=== PATIENT | female | born 1960 | race Caucasian/White ===

== ENCOUNTER 2021-07-21 18:03 | Inpatient (IN) | payer OTHER ==
[~2021-07-21] VITALS: Ht 160 cm; Wt 73.5 kg
[2021-07-22 02:38] LABS: HEMOGLOBIN 12.1 gm/dl (12.3-15.3); RED BLOOD COUNT 3.68 M/UL (4.00-5.10); WHITE BLOOD COUNT 8.8 K/UL (4.5-11.0)
[2021-07-22 03:00] LABS: BUN/CREATININE RATIO 24 (0-10)
[2021-07-22] MEDS ORDERED: AMLODIPINE BESY10 MG PO (09:51)
[2021-07-22] MEDS ORDERED: ATORVASTATIN CA10 MG PO (09:52)
[2021-07-22] MEDS ORDERED: ZESTRIL 40 MG T40 MG PO (09:53)
[2021-07-22] MEDS ORDERED: MONTELUKAST SOD10 MG PO (09:53)
[2021-07-22] MEDS ORDERED: LEVOCETIRIZINE D5 MG PO (09:53)
[2021-07-22] MEDS ORDERED: ASPIRIN EC81 MG PO (09:54)
[2021-07-22] MEDS ORDERED: LANTUS SOL100 UNIT/1 SQ (09:57)
[2021-07-22] MEDS ORDERED: AUGMENTIN 875-1 EACH PO (10:10)
[2021-07-23 02:21] LABS: HEMOGLOBIN 11.3 gm/dl (12.3-15.3); RED BLOOD COUNT 3.51 M/UL (4.00-5.10); WHITE BLOOD COUNT 10.8 K/UL (4.5-11.0)
[2021-07-23 03:27] LABS: BUN/CREATININE RATIO 31 (0-10)
[2021-07-24 04:00] LABS: BUN/CREATININE RATIO 44 (0-10)
[2021-07-25 03:45] LABS: HEMOGLOBIN 11.9 gm/dl (12.3-15.3); RED BLOOD COUNT 3.64 M/UL (4.00-5.10); WHITE BLOOD COUNT 9.2 K/UL (4.5-11.0)
[2021-07-25 05:29] LABS: BUN/CREATININE RATIO 36 (0-10)
[2021-07-26 02:42] LABS: BUN/CREATININE RATIO 32 (0-10)
[2021-07-27 02:23] LABS: HEMOGLOBIN 13.1 gm/dl (12.3-15.3)
[2021-07-27 02:27] LABS: RED BLOOD COUNT 4.03 M/UL (4.00-5.10); WHITE BLOOD COUNT 13.1 K/UL (4.5-11.0)
[2021-07-27 02:39] LABS: BUN/CREATININE RATIO 39 (0-10)
[2021-07-28 05:25] LABS: HEMOGLOBIN 13.3 gm/dl (12.3-15.3); RED BLOOD COUNT 4.2 M/UL (4.00-5.10)
[2021-07-28 05:32] LABS: WHITE BLOOD COUNT 18.3 K/UL (4.5-11.0)
[2021-07-28 05:57] LABS: BUN/CREATININE RATIO 36 (0-10)
--- NOTE | 2021-07-28 11:47 | NUR ---
MD FAIR AWARE OF RECENT XRAY. CALLED AND ASKED TO REVIEW RESULTS
--- NOTE | 2021-07-28 15:36 | NUR ---
PATIENT STATUS DECLINE. DR FAIR SPOKE WITH FAMILY MEMBERS WHO ASK PATIENT CODE STATUS BE CHANGED TO FULL CODE. PATIENT SEEN BY DR HUDSON, SHE IS TO BE TRANSFERRED TO ICU FOR PROBABLE INTUBATION AND FURTHER TREATMENT. FAMILY IS AWARE
--- NOTE | 2021-07-28 16:43 | NUR ---
PATIENT TRANSFERRED TO ICU ROOM 2109 PER NURSING STAFF AND RESPIRATORY STAFF. REPORT GIVEN TO [place]
--- NOTE | 2021-07-28 19:32 | NUR ---
1615 PT ARIVES TO THE ICU. PT IS ON 100% BIPAP 02 SATURATION IS 90-91. PT IS VERY ANXIOUS AND UNSURE IF SHE WANTS TO BE PLACED ON THE VENTILATOR. DR HUDSON AT BEDSIDE AND ROSALIND LORENZO DIGITAL IMAGER IS SPEAKING WITH THE SON MARSHA. AFTER A LENGTHY DISCUSSION WITH THE PT AND THE SON MARSHA. PT WAS AGREEABLE TO BE PLACED ON THE VENTILATOR FOR 5 DAYS AND AT THAT POINT HER WISHES WHERE FOR HER SON TO TAKE HER OFF THE VENTILATOR. THE SON MARSHA WAS ON FACETIME WITH THE PT AND STATED THAT HE WOULD HONOR PT'S REQUEST TO REMOVE THE VENTILATOR AFTER 5 DAYS IF SHE WASNT ANY BETTER. MARSHA VERBALIZED UNDERSTANDING OF THE PLAN OF CARE.
[2021-07-29 05:25] LABS: HEMOGLOBIN 12.7 gm/dl (12.3-15.3); RED BLOOD COUNT 3.92 M/UL (4.00-5.10); WHITE BLOOD COUNT 17.4 K/UL (4.5-11.0)
[2021-07-29 05:42] LABS: BUN/CREATININE RATIO 34 (0-10)
[2021-07-29 12:16] LABS: HEMOGLOBIN 12.9 gm/dl (12.3-15.3); RED BLOOD COUNT 3.88 M/UL (4.00-5.10); WHITE BLOOD COUNT 18.9 K/UL (4.5-11.0)
[2021-07-30 05:14] LABS: RED BLOOD COUNT 4.01 M/UL (4.00-5.10); WHITE BLOOD COUNT 19.2 K/UL (4.5-11.0)
[2021-07-31 04:57] LABS: HEMOGLOBIN 13.6 gm/dl (12.3-15.3); RED BLOOD COUNT 4.11 M/UL (4.00-5.10); WHITE BLOOD COUNT 20.5 K/UL (4.5-11.0)
[2021-07-31 05:09] LABS: BUN/CREATININE RATIO 46 (0-10)
[2021-08-01 05:32] LABS: HEMOGLOBIN 14.5 gm/dl (12.3-15.3); RED BLOOD COUNT 4.35 M/UL (4.00-5.10); WHITE BLOOD COUNT 22.1 K/UL (4.5-11.0)
[2021-08-01 06:33] LABS: BUN/CREATININE RATIO 49 (0-10)
[2021-08-02 05:11] LABS: HEMOGLOBIN 13.4 gm/dl (12.3-15.3); RED BLOOD COUNT 4.08 M/UL (4.00-5.10); WHITE BLOOD COUNT 25.5 K/UL (4.5-11.0)
[2021-08-02 05:43] LABS: BUN/CREATININE RATIO 56 (0-10)
--- NOTE | 2021-08-02 12:51 | NUR ---
08/02 [address] HUDSON HAD A MEETING WITH THE SON MARSHA WEISS WHERE THE FAMILY DECIDED TO DO COMFORT CARE. 08/02 1237 ARACELI WAS CONTACTED AND THEY RULED OUT DONATION DUE TO COVID. I WAS TOLD TO CALL BACK WITH CARDIAC TIME OF .
== END 2021-08-02 16:04 | disposition expired | DRG 207 ==
LOC: PROG CARE 18:03 → CCU 20:41 → PROG CARE 22:02 → CCU 07-28 17:50
PROVIDERS: Emergency Medicine; Internal Medicine; ADMIT Internal Medicine
PROC: XW033E5 Introduction of Remdesivir Anti-infective into Peripheral Vein, Percutaneous Approach, New Technology Group 5 (ICD-10-PCS; principal; 2021-07-21)
PROC: 3E0333Z Introduction of Anti-inflammatory into Peripheral Vein, Percutaneous Approach (ICD-10-PCS; 2021-07-21)
PROC: 5A09457 Assistance with Respiratory Ventilation, 24-96 Consecutive Hours, Continuous Positive Airway Pressure (ICD-10-PCS; 2021-07-21)
PROC: XW033H5 Introduction of Tocilizumab into Peripheral Vein, Percutaneous Approach, New Technology Group 5 (ICD-10-PCS; 2021-07-22)
PROC: 5A1955Z Respiratory Ventilation, Greater than 96 Consecutive Hours (ICD-10-PCS; 2021-07-28)
PROC: 05HM33Z Insertion of Infusion Device into Right Internal Jugular Vein, Percutaneous Approach (ICD-10-PCS; 2021-07-28)
PROC: 0BH18EZ Insertion of Endotracheal Airway into Trachea, Via Natural or Artificial Opening Endoscopic (ICD-10-PCS; 2021-07-28)
DX: U07.1 COVID-19 (principal); J12.82 Pneumonia due to coronavirus disease 2019; A41.9 Sepsis, unspecified organism; R65.21 Severe sepsis with septic shock; J15.9 Unspecified bacterial pneumonia; J80 Acute respiratory distress syndrome; J93.83 Other pneumothorax; E87.2 Acidosis; Z66 Do not resuscitate; F41.9 Anxiety disorder, unspecified; J98.2 Interstitial emphysema; I10 Essential (primary) hypertension; Z51.5 Encounter for palliative care; E11.9 Type 2 diabetes mellitus without complications; G31.84 Mild cognitive impairment of uncertain or unknown etiology; E66.9 Obesity, unspecified; R94.5 Abnormal results of liver function studies; E78.5 Hyperlipidemia, unspecified; Z88.8 Allergy status to other drugs, medicaments and biological substances; Z23 Encounter for immunization; Z79.4 Long term (current) use of insulin; Z79.82 Long term (current) use of aspirin; Z79.899 Other long term (current) drug therapy; Z79.02 Long term (current) use of antithrombotics/antiplatelets
CPT/HCPCS: 31500; 36415; 36600; 71045; 80048; 80053; 80202; 81001; 82803; 82962; 83036; 83605; 83880; 85025; 85027; 86140; 87040; 87070; 87081; 87086; 87205; 93005; 94003; 94660; 94760; C9113; J0456; J0696; J1100; J1650; J1940; J2060; J2185; J2270; J2405; J2704; J2920; J3010; J3370; J7030; J7040; J7050; Q0177; U0002